=== PATIENT | male | born 1960 | race Caucasian/White ===

== ENCOUNTER 2022-02-17 10:39 | Observation (INO) | payer OTHER ==
[2022-02-17] MEDS ORDERED: Lorazepam 2 MG/ML VIAL ONE (11:03)
[2022-02-17 11:26] LABS: #Eosinphils 0.1 thou/uL (0.0-0.7); #Lymphocytes 0.9 thou/uL (1.20-3.40); #Monocytes 0.3 thou/uL (0.11-0.59); #Neutrophils 2.8 thou/uL (1.40-6.50); %Basophils 0.2 % (0.0-1.0); %Eosinophils 1.5 % (0.0-10.0); %Lymphocytes 22.5 % (21.0-51.0); %Neutrophils 67.8 % (42.0-75.0); Hemoglobin 14.8 g/dL (14.0-18.0); Mean Corpuscular HGB CONC 34.1 g/dL (32.0-36.0); Mean Corpuscular Hemoglobin 33.6 pg (27.0-31.0); Mean Corpuscular Volume 98.6 fL (78.0-98.0); Mean Platelet Volume 8.3 fL (7.4-10.4); Platelet Count 186 thou/uL (130-400); RBC Distribution Width 11.4 % (11.5-14.5); Red Blood Cell (RBC) Count 4.41 mill/uL (4.70-6.10); White Blood Cell (WBC) Count 4.1 thou/uL (4.8-10.8)
[2022-02-17 11:49] LABS: ALT (SGPT) 19 U/L (8-55); AST (SGOT) 28 U/L (5-34); Alkaline Phosphatase 44 U/L (40-110); Anion Gap 13 mmol/L (10-20); BUN (Urea Nitrogen) 11 mg/dL (8.4-25.7); Bilirubin, Total 1.2 mg/dL (0.2-1.2); Calc. Creatinine Clearance 0 mL/min (70-130); Calcium 9.3 mg/dL (7.8-10.44); Carbon Dioxide 23 mmol/L (22-29); Chloride 105 mmol/L (98-107); Globulin 2.4 g/dL (2.4-3.5); Glucose 118 mg/dL (70-105); Magnesium 1.9 mg/dL (1.6-2.6); Potassium 3.8 mmol/L (3.5-5.1); Protein, Total 6.4 g/dL (6.0-8.3); Sodium 137 mmol/L (136-145)
[2022-02-17 12:19] LABS: CKMB 2.1 ng/mL (0-6.6)
[2022-02-17] MEDS ORDERED: Bisacodyl 5 MG TAB PO PRN (14:28)
[2022-02-17] MEDS ORDERED: Senokot S 8.6-50 MG TAB PO PRN (14:28)
[2022-02-17] MEDS ORDERED: Acetaminophen 325 MG TAB PO PRN (14:28)
[2022-02-17] MEDS ORDERED: Ondansetron PF 4 MG/2 ML Vial IVP PRN (14:28)
[2022-02-17] MEDS ORDERED: Ondansetron ODT 4 MG TAB PO PRN (14:28)
[2022-02-17] MEDS ORDERED: Bisacodyl 10 MG SUPP PR PRN (14:28)
[2022-02-17 15:12] LABS: Hemoglobin A1c 5.1 % (4.0-6.0)
[2022-02-17 15:35] LABS: Critical Call Chem Troponin I RESULT DECREASING; Troponin I 1.124 ng/mL (< 0.028)
[2022-02-17 15:56] VITALS: BMI 23.6
[2022-02-17 18:47] LABS: Troponin I 1.147 ng/mL (< 0.028)
[2022-02-17] MEDS ORDERED: Enoxaparin Sodium 80 MG/0.8 ML SYRINGE SC SCH (21:00)
[2022-02-17] MEDS: Sucralfate 1 GM TAB PO SCH (21:25)
[2022-02-17 22:21] LABS: SARS-CoV-2 PCR by NAA Not Detected (NotDetected)
[2022-02-18 05:46] LABS: #Eosinphils 0.1 thou/uL (0.0-0.7); #Lymphocytes 1.1 thou/uL (1.20-3.40); #Monocytes 0.4 thou/uL (0.11-0.59); #Neutrophils 2.6 thou/uL (1.40-6.50); %Basophils 0.1 % (0.0-1.0); %Eosinophils 1.8 % (0.0-10.0); %Lymphocytes 27.2 % (21.0-51.0); %Monocytes 9.3 % (0.0-10.0); %Neutrophils 61.5 % (42.0-75.0); Hemoglobin 13.9 g/dL (14.0-18.0); Mean Corpuscular HGB CONC 33.4 g/dL (32.0-36.0); Mean Corpuscular Hemoglobin 33.8 pg (27.0-31.0); Mean Platelet Volume 8.7 fL (7.4-10.4); Platelet Count 174 thou/uL (130-400); RBC Distribution Width 11.4 % (11.5-14.5); Red Blood Cell (RBC) Count 4.11 mill/uL (4.70-6.10); White Blood Cell (WBC) Count 4.2 thou/uL (4.8-10.8)
[2022-02-18 06:05] LABS: ALT (SGPT) 15 U/L (8-55); AST (SGOT) 24 U/L (5-34); Albumin 3.6 g/dL (3.5-5.0); Alkaline Phosphatase 40 U/L (40-110); Anion Gap 13 mmol/L (10-20); BUN (Urea Nitrogen) 8 mg/dL (8.4-25.7); Bilirubin, Direct 0.3 mg/dL (0.1-0.3); Bilirubin, Total 0.8 mg/dL (0.2-1.2); Calc. Creatinine Clearance 93 mL/min (70-130); Calcium 9.2 mg/dL (7.8-10.44); Carbon Dioxide 25 mmol/L (22-29); Cardiac Risk 4.6 (Less than 4.5); Chloride 107 mmol/L (98-107); Cholesterol 184 mg/dl (< 200 Desired); Glucose 88 mg/dL (70-105); HDL Cholesterol 40 mg/dL (>60 Neg Risk); LDL Cholesterol, Calculated 132 mg/dL; Potassium 3.9 mmol/L (3.5-5.1); Protein, Total 5.9 g/dL (6.0-8.3); Sodium 141 mmol/L (136-145); Triglycerides 59 mg/dL (Less than 150)
[2022-02-18] MEDS ORDERED: Aspirin 81 mg Enteric Coated Tablet PO SCH (09:00)
[2022-02-18] MEDS ORDERED: Rivaroxaban 10 MG TAB PO SCH ×2 (09:00→21:00)
[2022-02-18 11:27] VITALS: BP 112/69; TEMP 97.9
[2022-02-18] MEDS: Sucralfate 1 GM TAB PO SCH (12:06)
[2022-02-19] MEDS ORDERED: Polyethylene Glycol 3350 17 GM Packet PO SCH (09:00)
== END 2022-02-18 14:06 | disposition home or self-care (01) ==
LOC: ERS 10:39 → 2SW 14:32
PROVIDERS: ADMIT Emergency Medicine; ATTEND Emergency Medicine
DX: I48.92 Unspecified atrial flutter (principal); I21.A1 Myocardial infarction type 2; I48.0 Paroxysmal atrial fibrillation; I42.2 Other hypertrophic cardiomyopathy; K21.9 Gastro-esophageal reflux disease without esophagitis; G47.30 Sleep apnea, unspecified; N40.0 Benign prostatic hyperplasia without lower urinary tract symptoms; R79.89 Other specified abnormal findings of blood chemistry; Z86.73 Personal history of transient ischemic attack (TIA), and cerebral infarction without residual deficits; Z79.01 Long term (current) use of anticoagulants; Z79.82 Long term (current) use of aspirin; Z79.899 Other long term (current) drug therapy; Z20.822 Contact with and (suspected) exposure to COVID-19
CPT/HCPCS: 36415; 71045; 80048; 80053; 80061; 80076; 82553; 83036; 83735; 83880; 84443; 84484; 85025; 93005; 93306; 94760; 96372; 96374; G0378; J1650; J2060; U0003; U0005